=== PATIENT | female | born 1945 | race Caucasian/White ===

== ENCOUNTER 2018-08-25 15:28 | Emergency (ER) | payer MEDICARE ==
[~2018-08-25] VITALS: Ht 160 cm; Wt 95.3 kg
[2018-08-25] MEDS ORDERED: IV NORMAL SALINE 1,000ML 1,000 ML IV ONE (16:00)
[2018-08-25 16:29] LABS: BASO % 1 % (0-3); EOS # 0.1 x10^3/uL (0.0-0.7); EOS % 2 % (0-3); HEMATOCRIT 33.3 % (36.0-47.0); LYMPH # 1.9 x10^3/uL (1.0-4.8); LYMPH % 41 % (24-48); MEAN CORPUSCULAR HEMOGLOBIN 29 pg (25-35); MEAN CORPUSCULAR HGB CONC 33 g/dL (31-37); MEAN CORPUSCULAR VOLUME 87 fL (79-100); MONO # 0.3 x10^3/uL (0.0-1.1); MONO % 6 % (0-9); NEUT # 2.4 x10^3uL (1.8-7.7); NEUT % 51 % (31-73); PLATELET COUNT 173 x10^3/uL (140-400); RED BLOOD COUNT 3.82 x10^6/uL (3.50-5.40); RED CELL DISTRIBUTION WIDTH 15.3 % (11.5-14.5); WHITE BLOOD COUNT 4.7 x10^3/uL (4.0-11.0)
[2018-08-25 16:40] LABS: ALBUMIN/GLOBULIN RATIO 0.6 (1.0-1.7); CALCIUM 9.5 mg/dL (8.5-10.1); GFR 54.2; POTASSIUM 3.9 mmol/L (3.5-5.1); TOTAL BILIRUBIN 0.3 mg/dL (0.2-1.0); TOTAL PROTEIN 7.8 g/dL (6.4-8.2)
--- NOTE | 2018-08-25 16:58 | PHYS DOC ---
Past History Past Medical History: No Pertinent History Past Surgical History: Appendectomy, Cholecystectomy, Hysterectomy Adult General Chief Complaint Chief Complaint: VAGINAL BLEEDING HPI HPI 73-year-old female presents with vaginal bleeding. The patient woke up around 2pm and when she went to the bathroom she discovered that her pad had blood on it. She also had blood in the toilet when she went to the bathroom and blood on the toilet paper when she wiped. It was bright red. Patient denies any pain. She has had no increased urinary frequency or dysuria. She does not believe the blood is coming from her rectum. The patient had a hysterectomy many years ago. She is not sexually active for several years. She denies putting anything in her vagina. She has had no fever or chills. She denies shortness of breath, dizziness, headache. Review of Systems Review of Systems Constitutional: Denies fever or chills [] Eyes: Denies change in visual acuity, redness, or eye pain [] HENT: Denies nasal congestion or sore throat [] Respiratory: Denies cough or shortness of breath [] Cardiovascular: No additional information not addressed in HPI [] GI: Denies abdominal pain, nausea, vomiting, bloody stools or diarrhea [] : Vaginal bleeding[] Musculoskeletal: Denies back pain or joint pain [] Integument: Denies rash or skin lesions [] Neurologic: Denies headache, focal weakness or sensory changes [] Endocrine: Denies polyuria or polydipsia [] All other systems were reviewed and found to be within normal limits, except as documented in this note. Current Medications Current Medications Current Medications Medications (Trade) Dose Ordered Sig/Michel Start Time Stop Time Status Last Admin Dose Admin Sodium Chloride 1,000 ml @ 1,000 mls/hr 1X ONCE 08/25/18 16:00 08/25/18 16:59 08/25/18 16:08 1,000 MLS/HR Allergies Allergies Allergies Coded Allergies Type Severity Reaction Last Updated Verified No Known Drug Allergies 08/25/18 No Physical Exam Physical Exam Constitutional: Well developed, well nourished, no acute distress, non-toxic appearance. [] HENT: Normocephalic, atraumatic, bilateral external ears normal, oropharynx moist, no oral exudates, nose normal. [] Eyes: PERRLA, EOMI, conjunctiva normal, no discharge. [] Neck: Normal range of motion, no tenderness, supple, no stridor. [] Cardiovascular:Heart rate regular rhythm, no murmur [] Lungs & Thorax: Bilateral breath sounds clear to auscultation [] Abdomen: Bowel sounds normal, soft, no tenderness, no masses, no pulsatile masses. [] Skin: Warm, dry, no erythema, no rash. [] Back: No tenderness, no CVA tenderness. [] Extremities: No tenderness, no cyanosis, no clubbing, ROM intact, no edema. [] Neurologic: Alert and oriented X 3, normal motor function, normal sensory function, no focal deficits noted. [] Psychologic: Affect normal, judgement normal, mood normal. : Normal external exam, some small areas of thin skin with vessels just below at the distal labia. Internal exam some whitish discharge, no blood seen. [] Current Patient Data Vital Signs Vital Signs Date Time Temp Pulse Resp B/P (MAP) Pulse Ox O2 Delivery O2 Flow Rate FiO2 08/25/18 16:03 98.0 148 22 94 Room Air Lab Results Laboratory Tests Test 08/25/18 16:09 White Blood Count 4.7 x10^3/uL (4.0-11.0) Red Blood Count 3.82 x10^6/uL (3.50-5.40) Hemoglobin 11.0 g/dL (12.0-15.5) L Hematocrit 33.3 % (36.0-47.0) L Mean Corpuscular Volume 87 fL (79-100) Mean Corpuscular Hemoglobin 29 pg (25-35) Mean Corpuscular Hemoglobin Concent 33 g/dL (31-37) Red Cell Distribution Width 15.3 % (11.5-14.5) H Platelet Count 173 x10^3/uL (140-400) Neutrophils (%) (Auto) 51 % (31-73) Lymphocytes (%) (Auto) 41 % (24-48) Monocytes (%) (Auto) 6 % (0-9) Eosinophils (%) (Auto) 2 % (0-3) Basophils (%) (Auto) 1 % (0-3) Neutrophils # (Auto) 2.4 x10^3uL (1.8-7.7) Lymphocytes # (Auto) 1.9 x10^3/uL (1.0-4.8) Monocytes # (Auto) 0.3 x10^3/uL (0.0-1.1) Eosinophils # (Auto) 0.1 x10^3/uL (0.0-0.7) Basophils # (Auto) 0.0 x10^3/uL (0.0-0.2) Sodium Level 137 mmol/L (136-145) Potassium Level 3.9 mmol/L (3.5-5.1) Chloride Level 101 mmol/L (98-107) Carbon Dioxide Level 28 mmol/L (21-32) Anion Gap 8 (6-14) Blood Urea Nitrogen 21 mg/dL (7-20) H Creatinine 1.0 mg/dL (0.6-1.0) Estimated GFR (Cockcroft-Gault) 54.2 BUN/Creatinine Ratio 21 (6-20) H Glucose Level 304 mg/dL (70-99) H Calcium Level 9.5 mg/dL (8.5-10.1) Total Bilirubin 0.3 mg/dL (0.2-1.0) Aspartate Amino Transferase (AST) 51 U/L (15-37) H Alanine Aminotransferase (ALT) 84 U/L (14-59) H Alkaline Phosphatase 94 U/L (46-116) Total Protein 7.8 g/dL (6.4-8.2) Albumin 3.0 g/dL (3.4-5.0) L Albumin/Globulin Ratio 0.6 (1.0-1.7) L EKG EKG [] Radiology/Procedures Radiology/Procedures [] Course & Med Decision Making Course & Med Decision Making Pertinent Labs and Imaging studies reviewed. (See chart for details) The patient's labs show mild anemia, I have no previous for comparison. Her pelvic exam does not show significant atrophy. There are some superficial vessels with thin overlying skin of the distal vagina and labia. It is possible that these could become irritated and bleed. I do not see any current bleeding. The patient's wet prep is still pending. I will sign her out to Dr. Tolliver for final disposition. [] Dragon Disclaimer Dragon Disclaimer This electronic medical record was generated, in whole or in part, using a voice recognition dictation system. Departure Departure: Referrals: PCP,UNKNOWN (PCP) ANGEL HENDERSON DO Aug 25, 2018 16:57
[2018-08-25 18:37] VITALS: BP 148/84
[2018-08-25 18:43] LABS: BACTERIA,URINE MANY /HPF (0-FEW); BILIRUBIN,URINE NEG (NEG); CLARITY,URINE CLOUDY; COLOR,URINE YELLOW; GLUCOSE,URINE 250 mg/dL (NEG); NITRITE,URINE POS (NEG); SQUAMOUS EPITHELIAL CELL,UR FEW /LPF; UROBILINOGEN,URINE 0.2 mg/dL (0.2 mg/dL); WBC,URINE >40 /HPF (0-4)
[2018-08-25] MEDS ORDERED: CEPH-264 PO (18:55)
[2018-08-25] MEDS ORDERED: cefTRIAXone IM 1 GM VIAL IM ONE (19:01)
[2018-08-25] MEDS ORDERED: IV NORMAL SALINE 50ML 0 ML ONE (19:02)
[2018-08-25] MEDS ORDERED: cefTRIAXone IV Push 1 GM VIAL. IVP ONE (19:15)
== END 2018-08-25 19:34 | disposition home or self-care (01) ==
LOC: ER 15:28
DX: N39.0 Urinary tract infection, site not specified (principal); E11.9 Type 2 diabetes mellitus without complications; D64.9 Anemia, unspecified; Z90.89 Acquired absence of other organs; Z90.49 Acquired absence of other specified parts of digestive tract; Z90.710 Acquired absence of both cervix and uterus
CPT/HCPCS: 36415; 80053; 81001; 85025; 87086; 96374; 99284; J0696; Q0111; 87186; 96361; J7030

== ENCOUNTER 2018-10-20 20:22 | Inpatient (IN) | payer MEDICARE ==
[~2018-10-20] VITALS: Ht 157.5 cm; Wt 104.3 kg
[~2018-10-20 20:22] MED LIST: CEPH-264 PO
[2018-10-20] MEDS ORDERED: IV NORMAL SALINE 1,000ML 1,000 ML IV SCH (20:42)
[2018-10-20] MEDS ORDERED: dilTIAZem VIAL 125 MG in IV DEXTROSE 5% 100 ML IV ONE (20:45)
[2018-10-20] MEDS ORDERED: dilTIAZem 25 MG/5 ML VIAL IVP ONE (20:45)
[2018-10-20] MEDS ORDERED: IV DEXTROSE 5% 100 ML IV ONE (20:50)
--- NOTE | 2018-10-20 20:53 | PHYS DOC ---
Past History Past Medical History: Diabetes, Hypertension Past Surgical History: Cholecystectomy, Hysterectomy, Other Alcohol Use: None Drug Use: None Adult General Chief Complaint Chief Complaint: SHORTNESS OF BREATH HPI HPI Patient is a 73-year-old female who presents to the emergency department for evaluation. The patient's son states that the patient has had a generally declining health over the past several days. She has had a decreased appetite, and not been eating. She has also become increasingly more forgetful. She has been repeating questions, but where she is going, upon transportation to the emergency department. She denies any definite focal pain but is somewhat of a limited historian. The patient's son states that she has had some confusion for some time, but still has been able to live independently. However confusion seems to have worsened. She has not been formally diagnosed dementia in the past , however. There are no alleviating or exacerbating factors to the patient's symptoms otherwise. Review of Systems Review of Systems Constitutional: Denies fever or chills [] Eyes: Denies change in visual acuity, redness, or eye pain [] HENT: Denies nasal congestion or sore throat [] Respiratory: Denies cough or shortness of breath [] Cardiovascular: Denies chest pain, denies palpitations.[] GI: Denies nausea, vomiting, bloody stools or diarrhea [] : Denies dysuria or hematuria [] Musculoskeletal: Denies back pain or joint pain [] Integument: Denies rash or skin lesions [] Neurologic: Denies headache, focal weakness or sensory changes. The patient's son reports increasing confusion.[] Endocrine: Denies polyuria or polydipsia [] All other systems were reviewed and found to be within normal limits, except as documented in this note. Allergies Allergies Allergies Coded Allergies Type Severity Reaction Last Updated Verified No Known Drug Allergies 08/25/18 No Physical Exam Physical Exam PHYSICAL EXAM: CONSTITUTIONAL: Well developed, well nourished HEAD: normocephalic, atraumatic EENT: PERRL, EOMI. Conjunctivae normal color, sclerae non-icteric; dry mucous membranes. NECK: Supple, non-tender; no meningismus. LUNGS: Lungs CTA, breathing even and unlabored. Normal air movement. HEART: Rapid irregularly irregular rhythm, no murmur CHEST: No deformity; non-tender ABDOMEN: The abdomen is soft, mildly distended, diminished bowel sounds are present, there is diffuse tenderness to palpation of the entire abdomen, without focal tenderness, rebound, or guarding, no masses or bruits. EXTREM: Normal ROM; no deformity, no calf tenderness. Normal pulses palpable in all extremities. There is no pedal edema. SKIN: No rash; no diaphoresis NEURO: Alert; normal speech, the patient is oriented to person, and to place, but not to time. She has impaired cognition, with some confabulation, suggestive of underlying dementia; CN's grossly intact; strength grossly intact without focal deficit. BACK: No CVA TTP. Current Patient Data Vital Signs Vital Signs Date Time Temp Pulse Resp B/P (MAP) Pulse Ox O2 Delivery O2 Flow Rate FiO2 10/20/18 20:34 97.8 133 20 94 Room Air Lab Results Laboratory Tests Test 10/20/18 20:40 White Blood Count 5.1 x10^3/uL Red Blood Count 3.79 x10^6/uL Hemoglobin 10.5 g/dL Hematocrit 32.7 % Mean Corpuscular Volume 86 fL Mean Corpuscular Hemoglobin 28 pg Mean Corpuscular Hemoglobin Concent 32 g/dL Red Cell Distribution Width 16.9 % Platelet Count 165 x10^3/uL Neutrophils (%) (Auto) 62 % Lymphocytes (%) (Auto) 31 % Monocytes (%) (Auto) 6 % Eosinophils (%) (Auto) 1 % Basophils (%) (Auto) 1 % Neutrophils # (Auto) 3.1 x10^3uL Lymphocytes # (Auto) 1.5 x10^3/uL Monocytes # (Auto) 0.3 x10^3/uL Eosinophils # (Auto) 0.1 x10^3/uL Basophils # (Auto) 0.0 x10^3/uL Prothrombin Time 11.8 SEC Prothromb Time International Ratio 1.2 Sodium Level 134 mmol/L Potassium Level 3.9 mmol/L Chloride Level 99 mmol/L Carbon Dioxide Level 26 mmol/L Anion Gap 9 Blood Urea Nitrogen 16 mg/dL Creatinine 1.1 mg/dL Estimated GFR (Cockcroft-Gault) 48.6 BUN/Creatinine Ratio 15 Glucose Level 311 mg/dL Lactic Acid Level 2.2 mmol/L Calcium Level 11.4 mg/dL Magnesium Level 1.6 mg/dL Total Bilirubin 0.6 mg/dL Aspartate Amino Transf (AST/SGOT) 42 U/L Alanine Aminotransferase (ALT/SGPT) 39 U/L Alkaline Phosphatase 93 U/L Troponin I Quantitative < 0.017 ng/mL TC-Vsd-M-Type Natriuretic Peptide 2833 pg/mL Total Protein 8.3 g/dL Albumin 3.1 g/dL Albumin/Globulin Ratio 0.6 Current Medications Medications (Trade) Dose Ordered Sig/Michel Route PRN Reason Start Time Stop Time Status Last Admin Dose Admin Diltiazem HCl (Cardizem Iv Push) 10 mg 1X ONCE IVP 10/20/18 20:45 10/20/18 20:49 DC 10/20/18 20:55 Diltiazem HCl 125 mg/Dextrose 125 ml @ 10 mls/hr 1X ONCE IV 10/20/18 20:45 10/21/18 09:14 10/20/18 20:57 Sodium Chloride 1,000 ml @ 1,000 mls/hr Q1H IV 10/20/18 20:42 10/20/18 21:41 DC 10/20/18 20:54 Dextrose 100 ml @ As Directed STK-MED ONCE IV 10/20/18 20:50 10/20/18 20:51 DC Diltiazem HCl (Cardizem) 125 mg STK-MED ONCE IV 10/20/18 20:50 10/20/18 20:51 DC Aspirin (Children'S Aspirin) 162 mg 1X ONCE PO 10/20/18 21:00 10/20/18 21:01 DC 10/20/18 21:31 Insulin Human Regular (HumuLIN R VIAL) 5 unit 1X ONCE IV 10/20/18 21:30 10/20/18 21:33 DC 10/20/18 21:36 Magnesium Sulfate 100 ml @ 100 mls/hr 1X ONCE IV 10/20/18 21:30 10/20/18 22:29 10/20/18 21:49 Magnesium Sulfate 100 ml @ As Directed STK-MED ONCE IV 10/20/18 21:33 10/20/18 21:34 DC EKG EKG Atrial fibrillation at a rate of 159 bpm, normal axis, normal intervals, nonspecific ST/T changes. Radiology/Procedures Radiology/Procedures [ER physician preliminary chest x-ray interpretation: Cardiomegaly without acute abnormality.] PROCEDURE: CT HEAD WO CONTRAST CT Head W/O Contrast: History: Altered mental status, confusion Comparison: none Axial images were obtained without contrast. There is moderate diffuse atrophy. There is no mass effect, extraaxial fluid collections or hydrocephalus. 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 There is no focal loss of caro-white matter distinction to suggest acute ischemia, i.e. stroke. There is diffuse heterogeneity osseous structures with a fine moth eaten appearance. Impression: 1. 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 No acute intracranial findings. 2. Diffuse heterogeneity of the osseous structures could be secondary to multiple myeloma. PROCEDURE: CT ABDOMEN PELVIS WO CONTRAST Abdominal and Pelvis CT, Without Contrast: History: Abdominal pain and tenderness and history of cholecystectomy and appendectomy and hysterectomy Comparison: None. Procedure: Axial images are obtained of the abdomen and pelvis, without IV or oral contrast. CT Abdomen without Contrast: Findings: Evaluation of solid organs is limited without contrast. There is mild free fluid around the spleen and there is free fluid along the paracolic gutter on the left. There is a trace of free fluid around the liver. Evaluation of stomach and bowel is limited without oral contrast. Liver: Normal. Spleen: Normal. Pancreas: Atrophic. Adrenal Glands: Normal. Kidneys: Small cyst on the left. There is no free air. There is no lymphadenopathy. Impression: Please see CT Pelvis without Contrast. End Impression. CT Pelvis without Contrast: Findings: The urinary bladder is collapsed. There is diffuse edema in the soft tissues especially in the anterior abdominal wall. There is no free fluid. There is mild free fluid in the pelvis. There is no lymphadenopathy. There is no pericolonic inflammation identified. Impression: 1. Diffuse soft tissue edema could be anasarca or sepsis. 2. Mild free fluid likely ascites. End impression Course & Med Decision Making Course & Med Decision Making Pertinent Labs and Imaging studies reviewed. (See chart for details) []10:05 PM:The patient's condition remains stable. I spoke with the hospitalist, who accepted the patient to the hospital for further evaluation and treatment. CRITICAL CARE TIME: 45 Minutes, excluding any procedures and care of other patients. Dragon Disclaimer Dragon Disclaimer This electronic medical record was generated, in whole or in part, using a voice recognition dictation system. Departure Departure: Impression: Primary Impression: Atrial fibrillation with RVR Additional Impressions: Congestive heart failure Hyperglycemia Altered mental status Dehydration Disposition: ADMITTED INPATIENT Admitting Physician: Danilo Royal Condition: GUARDED Referrals: PCP,UNKNOWN (PCP) Problem Qualifiers DONOVAN FRANCISCO MD Oct 20, 2018 20:53
[2018-10-20] MEDS ORDERED: ASPIRIN 81 MG TAB.CHEW PO ONE (21:00)
[2018-10-20 21:09] LABS: BASO % 1 % (0-3); EOS # 0.1 x10^3/uL (0.0-0.7); EOS % 1 % (0-3); HEMATOCRIT 32.7 % (36.0-47.0); HEMOGLOBIN 10.5 g/dL (12.0-15.5); LYMPH # 1.5 x10^3/uL (1.0-4.8); LYMPH % 31 % (24-48); MEAN CORPUSCULAR HEMOGLOBIN 28 pg (25-35); MEAN CORPUSCULAR HGB CONC 32 g/dL (31-37); MEAN CORPUSCULAR VOLUME 86 fL (79-100); MONO # 0.3 x10^3/uL (0.0-1.1); MONO % 6 % (0-9); NEUT # 3.1 x10^3uL (1.8-7.7); NEUT % 62 % (31-73); PLATELET COUNT 165 x10^3/uL (140-400); RED BLOOD COUNT 3.79 x10^6/uL (3.50-5.40); RED CELL DISTRIBUTION WIDTH 16.9 % (11.5-14.5); WHITE BLOOD COUNT 5.1 x10^3/uL (4.0-11.0)
[2018-10-20 21:23] LABS: ALBUMIN 3.1 g/dL (3.4-5.0); ALBUMIN/GLOBULIN RATIO 0.6 (1.0-1.7); CALCIUM 11.4 mg/dL (8.5-10.1); CREATININE 1.1 mg/dL (0.6-1.0); GFR 48.6; MAGNESIUM 1.6 mg/dL (1.8-2.4); POTASSIUM 3.9 mmol/L (3.5-5.1); TOTAL BILIRUBIN 0.6 mg/dL (0.2-1.0); TOTAL PROTEIN 8.3 g/dL (6.4-8.2)
[2018-10-20] MEDS ORDERED: MAGNESIUM SULFATE 1GM 100 ML IV ONE ×2 (21:30→21:33)
[2018-10-20] MEDS ORDERED: INSULIN REGULAR 100 UNIT/ML 3ML VIAL. IV ONE (21:30)
--- NOTE | 2018-10-20 21:46 | RAD ---
CT Head W/O Contrast: History: Altered mental status, confusion Comparison: none Axial images were obtained without contrast. There is moderate diffuse atrophy. There is no mass effect, extraaxial fluid collections or hydrocephalus. 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 There is no focal loss of caro-white matter distinction to suggest acute ischemia, i.e. stroke. There is diffuse heterogeneity osseous structures with a fine moth eaten appearance. Impression: 1. 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 No acute intracranial findings. 2. Diffuse heterogeneity of the osseous structures could be secondary to multiple myeloma. PQRS Compliance Statement: One or more of the following individualized dose reduction techniques were utilized for this examination: 1. Automated exposure control 2. Adjustment of the mA and/or kV according to patient size 3. Use of iterative reconstruction technique Electronically signed by: Geronimo Echeverria III, MD (10/20/2018 9:43 PM) [facility]
--- NOTE | 2018-10-20 22:02 | RAD ---
Abdominal and Pelvis CT, Without Contrast: History: Abdominal pain and tenderness and history of cholecystectomy and appendectomy and hysterectomy Comparison: None. Procedure: Axial images are obtained of the abdomen and pelvis, without IV or oral contrast. CT Abdomen without Contrast: Findings: Evaluation of solid organs is limited without contrast. There is mild free fluid around the spleen and there is free fluid along the paracolic gutter on the left. There is a trace of free fluid around the liver. Evaluation of stomach and bowel is limited without oral contrast. Liver: Normal. Spleen: Normal. Pancreas: Atrophic. Adrenal Glands: Normal. Kidneys: Small cyst on the left. There is no free air. There is no lymphadenopathy. Impression: Please see CT Pelvis without Contrast. End Impression. CT Pelvis without Contrast: Findings: The urinary bladder is collapsed. There is diffuse edema in the soft tissues especially in the anterior abdominal wall. There is no free fluid. There is mild free fluid in the pelvis. There is no lymphadenopathy. There is no pericolonic inflammation identified. Impression: 1. Diffuse soft tissue edema could be anasarca or sepsis. 2. Mild free fluid likely ascites. End impression PQRS Compliance Statement: One or more of the following individualized dose reduction techniques were utilized for this examination: 1. Automated exposure control 2. Adjustment of the mA and/or kV according to patient size 3. Use of iterative reconstruction technique Electronically signed by: Geronimo Echeverria III, MD (10/20/2018 9:58 PM) [facility]
[2018-10-20] MEDS ORDERED: ACETAMINOPHEN 325 MG TABLET PO ONE (22:30)
[2018-10-20 22:50] LABS: BILIRUBIN,URINE NEG (NEG); CLARITY,URINE HAZY; COLOR,URINE YELLOW; GLUCOSE,URINE 100 mg/dL (NEG)
[2018-10-20 22:51] LABS: AMORPHOUS SEDIMENT,UR PRESENT /HPF; BACTERIA,URINE 0 /HPF (0-FEW); HYALINE CASTS, URINE MANY /HPF; NITRITE,URINE NEG (NEG); SQUAMOUS EPITHELIAL CELL,UR FEW /LPF; UROBILINOGEN,URINE 0.2 mg/dL (0.2 mg/dL)
[2018-10-20 23:30] VITALS: BP 118/56
[2018-10-21] VITALS (24 sets, daily range): BP systolic 108–165; BP diastolic 56–103
--- NOTE | 2018-10-21 01:41 | EKG ---
[address] [address] Test Date: 2018-10-20 Test Time: 20:36:48 Pat Name: SAV MORAN Department: Room: [facility]04 1 Gender: F Patent Paralegal: : 1945 Requested By: DONOVAN FRANCISCO Order Number: [id number] Reading MD: Nicanor Shaw Measurements Intervals [place] Rate: 144 P: NM: QRS: 43 QRSD: 76 T: 39 QT: 296 QTc: 463 Interpretive Statements ATRIAL FIBRILLATION WITH RVR LOW LIMB LEAD VOLTAGE ABNORMAL ECG Electronically Signed On 10-24-2018 8:43:29 [employer] by Nicanor Shaw
[2018-10-21] MEDS ORDERED: HYDR12.58 PO (01:57)
[2018-10-21] MEDS ORDERED: LISI-334 PO (01:57)
[2018-10-21] MEDS ORDERED: INSU100I13 SUBCUT (01:57)
[2018-10-21] MEDS ORDERED: METF500T16 PO (01:57)
--- NOTE | 2018-10-21 02:22 | RAD ---
AP portable chest radiograph 10/20/2018 Clinical History: Shortness of breath and chest discomfort. An AP erect portable digital radiograph of the chest was obtained. No previous studies are available for comparison. The cardiac silhouette is mildly enlarged. Atherosclerotic calcification thoracic aorta is seen. The thoracic aorta is mildly tortuous. No acute pulmonary infiltrate is seen. No pleural effusion or pneumothorax is noted. Degenerative changes are seen involving the thoracic spine and both shoulders. IMPRESSION: No acute abnormality is seen. Electronically signed by: Candido Wu MD (10/21/2018 2:19 AM) [facility] [id number]
[2018-10-21] MEDS ORDERED: dilTIAZem VIAL 125 MG in IV DEXTROSE 5% 100 ML IV PRN (05:30)
[2018-10-21 06:36] LABS: HEMATOCRIT 31.2 % (36.0-47.0); HEMOGLOBIN 9.9 g/dL (12.0-15.5); RED BLOOD COUNT 3.57 x10^6/uL (3.50-5.40); RED CELL DISTRIBUTION WIDTH 16.7 % (11.5-14.5)
[2018-10-21 06:51] LABS: CALCIUM 11.3 mg/dL (8.5-10.1); GFR 54.2; MAGNESIUM 1.9 mg/dL (1.8-2.4); POTASSIUM 3.7 mmol/L (3.5-5.1)
--- NOTE | 2018-10-21 09:06 | PDOC2 ---
CONSULT Date of Admission DATE: 10/21/18 TIME: 09:03 Reason for Consult: afib, chf Problem List Problems Medical Problems: (1) Altered mental status Status: Acute (2) Atrial fibrillation with RVR Status: Acute (3) Congestive heart failure Status: Acute (4) Dehydration Status: Acute (5) Hyperglycemia Status: Acute History of Present Illness Ms Carlin is a 73 year old female who presented to the ED accompanied by her son for progressive weakness, frequent falls and shortness of breath. She was found to be in atrial fibrillation with RVR so consult was called. Currently she is on a cardizem drip, remains in atrial fibrillation but with controlled ventricular response. She is a poor historian but her son is at bedside and provides history. She initially reports that she came to the ED after a fall out of bed but her son reports that this actually obscured a couple weeks ago. He reports that she has had progressive weakness over several years and several falls in the last year. He reports she has had memory issues for some time but progressively worse in the last couple weeks. Yesterday he noticed that her speech was "not slurred but funny" and she complained of not feeling well so he brought her to the ED. He says she has been short of breath with any activity over the last couple weeks. She denies any chest pain and he denies any prior complaints of chest pain. He reports she has a gait that lists to the left and recently she has been leaning on her walker much more than normal. She denies palpitations but states today she can feel the irregular beats. She currently denies any dyspnea, chest pain. She reports that she sometimes has dizziness and her son states she sometimes appears to be dizzy on standing but has never complained of it. She does continue to live in her own apartment. Cardiovascular: HTN Musculoskeletal: Weakness Renal/: UTI Endocrine: Diabetes Past Surgical History: Appendectomy, Cholecystectomy, Cataract Removal, Hysterectomy, Other (shoulder surgery) Family History: Cancer, Diabetes, Stroke Social History no smoking, no significant ETOH, no illicit drugs Current Medications Current Medications Diltiazem HCl (Cardizem Iv Push) 10 mg 1X ONCE IVP Last administered on at 20:55; Start 10/20/18 at 20:45; Stop 10/20/18 at 20:49; Status DC Diltiazem HCl 125 mg/Dextrose 125 ml @ 10 mls/hr 1X ONCE IV Last administered on 10/20/18at 20:57; Start 10/20/18 at 20:45; Stop 10/21/18 at 09 :14 Sodium Chloride 1,000 ml @ 1,000 mls/hr Q1H IV Last administered on at 20:54; Start 10/20/18 at 20:42; Stop 10/20/18 at 21:41; Status DC Dextrose 100 ml @ As Directed STK-MED ONCE IV ; Start 10/20/18 at 20:50; Stop 10/20/18 at 20:51; Status DC Diltiazem HCl (Cardizem) 125 mg STK-MED ONCE IV ; Start 10/20/18 at 20:50; Stop 10/20/18 at 20:51; Status DC Aspirin (Children'S Aspirin) 162 mg 1X ONCE PO Last administered on at 21:31; Start 10/20/18 at 21:00; Stop 10/20/18 at 21:01; Status DC Insulin Human Regular (HumuLIN R VIAL) 5 unit 1X ONCE IV Last administered on 10/20/18at 21:36; Start 10/20/18 at 21:30; Stop 10/20/18 at 21:33; Status DC Magnesium Sulfate 100 ml @ 100 mls/hr 1X ONCE IV Last administered on at 21:49; Start 10/20/18 at 21:30; Stop 10/20/18 at 22:29; Status DC Magnesium Sulfate 100 ml @ As Directed STK-MED ONCE IV ; Start 10/20/18 at 21: 33; Stop 10/20/18 at 21:34; Status DC Acetaminophen (Tylenol) 650 mg 1X ONCE PO Last administered on 10/20/18at 22: 23; Start 10/20/18 at 22:30; Stop 10/20/18 at 22:31; Status DC Diltiazem HCl (Cardizem) 125 mg STK-MED ONCE IV ; Start 10/21/18 at 05:01; Stop 10/21/18 at 05:02; Status DC Diltiazem HCl 125 mg/Dextrose 125 ml @ 5 mls/hr CONT PRN IV SEE I/O RECORD Last administered on 10/21/18at 05:58; Start 10/21/18 at 05:30 Active Scripts Active Keflex (Cephalexin) 500 Mg Capsule 500 Mg PO TID Reported Lantus Solostar (Insulin Glargine,Hum.rec.anlog) 100 Unit/1 Ml Insuln.pen 30 Units SUBCUT QHS Hydrochlorothiazide Tablet (Hydrochlorothiazide) 12.5 Mg Tablet 12.5 Mg PO DAILY Lisinopril 20 Mg Tablet 20 Mg PO DAILY Metformin Hcl 500 Mg Tablet 500 Mg PO BID Allergies: Coded Allergies: No Known Drug Allergies (Unverified , 08/25/18) General: YES: Fatigue, Appetite (poor intake over 2 weeks) PSYCHOLOGICAL ROS: YES: Disorientation, Memory difficulties ENDOCRINE: YES: Palpitations Respiratory: YES: SOB with excertion Cardiovascular: yes: Palpitations, Edema, Lt Headedness Musculoskeletal: YES: Gait Disturbance, Muscular Weakness Neurological: YES: Dizziness, Gait Disturbance, Impaired Coord/balance, Memory Loss, Speech Problems, Weakness General: Alert, Oriented X3, Cooperative, No acute distress, Other (poor short term recall) HEENT: Atraumatic, EOMI, Mucous membr. moist/pink Lungs: Clear to auscultation, Normal air movement Heart: Normal S1, Normal S2, Other (irregularly irregular rate and rhythm, no gallops, clicks or rubs. No significnt murmurs.) Abdomen: Normal bowel sounds, Soft, No tenderness Extremities: No cyanosis, Normal pulses, Other (trace edema) Neuro: Normal speech, Strength at 5/5 X4 ext Psych/Mental Status: Mental status NL, Mood NL VITALS Vital Signs Date Time Temp Pulse Resp B/P (MAP) Pulse Ox O2 Delivery O2 Flow Rate FiO2 10/21/18 08:00 97.4 74 28 140/87 (104) 97 Room Air Labs Laboratory Tests Test 10/20/18 20:40 10/20/18 22:15 10/21/18 00:40 10/21/18 05:39 White Blood Count 5.1 x10^3/uL (4.0-11.0) 5.0 x10^3/uL (4.0-11.0) Red Blood Count 3.79 x10^6/uL (3.50-5.40) 3.57 x10^6/uL (3.50-5.40) Hemoglobin 10.5 g/dL (12.0-15.5) 9.9 g/dL (12.0-15.5) Hematocrit 32.7 % (36.0-47.0) 31.2 % (36.0-47.0) Mean Corpuscular Volume 86 fL (79-100) 87 fL (79-100) Mean Corpuscular Hemoglobin 28 pg (25-35) 28 pg (25-35) Mean Corpuscular Hemoglobin Concent 32 g/dL (31-37) 32 g/dL (31-37) Red Cell Distribution Width 16.9 % (11.5-14.5) 16.7 % (11.5-14.5) Platelet Count 165 x10^3/uL (140-400) 153 x10^3/uL (140-400) Neutrophils (%) (Auto) 62 % (31-73) Lymphocytes (%) (Auto) 31 % (24-48) Monocytes (%) (Auto) 6 % (0-9) Eosinophils (%) (Auto) 1 % (0-3) Basophils (%) (Auto) 1 % (0-3) Neutrophils # (Auto) 3.1 x10^3uL (1.8-7.7) Lymphocytes # (Auto) 1.5 x10^3/uL (1.0-4.8) Monocytes # (Auto) 0.3 x10^3/uL (0.0-1.1) Eosinophils # (Auto) 0.1 x10^3/uL (0.0-0.7) Basophils # (Auto) 0.0 x10^3/uL (0.0-0.2) Prothrombin Time 11.8 SEC (9.4-11.4) Prothromb Time International Ratio 1.2 (0.9-1.1) Sodium Level 134 mmol/L (136-145) 134 mmol/L (136-145) Potassium Level 3.9 mmol/L (3.5-5.1) 3.7 mmol/L (3.5-5.1) Chloride Level 99 mmol/L (98-107) 101 mmol/L (98-107) Carbon Dioxide Level 26 mmol/L (21-32) 25 mmol/L (21-32) Anion Gap 9 (6-14) 8 (6-14) Blood Urea Nitrogen 16 mg/dL (7-20) 15 mg/dL (7-20) Creatinine 1.1 mg/dL (0.6-1.0) 1.0 mg/dL (0.6-1.0) Estimated GFR (Cockcroft-Gault) 48.6 54.2 BUN/Creatinine Ratio 15 (6-20) Glucose Level 311 mg/dL (70-99) 246 mg/dL (70-99) Lactic Acid Level 2.2 mmol/L (0.4-2.0) 2.5 mmol/L (0.4-2.0) Calcium Level 11.4 mg/dL (8.5-10.1) 11.3 mg/dL (8.5-10.1) Magnesium Level 1.6 mg/dL (1.8-2.4) 1.9 mg/dL (1.8-2.4) Total Bilirubin 0.6 mg/dL (0.2-1.0) Aspartate Amino Transf (AST/SGOT) 42 U/L (15-37) Alanine Aminotransferase (ALT/SGPT) 39 U/L (14-59) Alkaline Phosphatase 93 U/L (46-116) Troponin I Quantitative < 0.017 ng/mL (0-0.055) LI-Ubo-U-Type Natriuretic Peptide 2833 pg/mL (0-124) Total Protein 8.3 g/dL (6.4-8.2) Albumin 3.1 g/dL (3.4-5.0) Albumin/Globulin Ratio 0.6 (1.0-1.7) Urine Collection Type U cath Urine Color Yellow Urine Clarity Hazy Urine pH 5.5 Urine Specific Chappells >=1.030 Urine Protein >100 mg/dl (NEG-TRACE) Urine Glucose (UA) 100 mg/dL (NEG) Urine Ketones (Stick) Neg mg/dL (NEG) Urine Blood Small (NEG) Urine Nitrite Neg (NEG) Urine Bilirubin Neg (NEG) Urine Urobilinogen Dipstick 0.2 mg/dL (0.2 mg/dL) Urine Leukocyte Esterase Neg (NEG) Urine RBC 3-5 /HPF (0-2) Urine WBC 1-4 /HPF (0-4) Urine Squamous Epithelial Cells Few /LPF Urine Amorphous Sediment Present /HPF Urine Bacteria 0 /HPF (0-FEW) Urine Hyaline Casts Many /HPF Urine Mucus Marked /LPF Test 10/21/18 08:03 Glucose (Fingerstick) 252 mg/dL (70-99) Images CXR - no acute abn EKG atrial fibrillation with rapid ventricular response, no acute ischemic changes Assessment/Plan 1. atrial fibrillation with RVR - now rate controlled on cardizem drip. change to oral. [id number] =~5 indicating need for OAC. Frequent falls recently and poor compliance with meds so will go with ASA only at this time. Risks/benefits/alternatives discussed with patient and son. 2. elevated BNP - clinically no overt heart failure and no pulmonary congestion on CXR 3. hypertension - currently well controlled 4. progressive weakness - consider neuro consult 5. diabetes - uncontrolled, per PCP 6. lactic acidosis - per pcp 7. hypomagnesemia - replaced, now WNL 8. protein malnutrition - per PCP GENESIS ROSARIO APRN Oct 21, 2018 09:06
[2018-10-21] MEDS: ASPIRIN ENTERIC COATED 81 MG TABLET.DR. PO SCH (10:06)
[2018-10-21] MEDS ORDERED: VIT1CAPS12 PO (10:17)
[2018-10-21] MEDS ORDERED: MULT1TAB52 PO (10:18)
[2018-10-21] MEDS ORDERED: ASCO500T PO (10:19)
[2018-10-21 14:00] LABS: THYROID STIM HORMONE (TSH) 1.754 uIU/mL (0.358-3.740)
[2018-10-21] MEDS ORDERED: DEXTROSE 50% 25 GM / 50ML DISP.SYRIN. IV PRN (14:15)
--- NOTE | 2018-10-21 14:24 | HP ---
ADMIT DATE: 10/21/2018 HISTORY OF PRESENT ILLNESS: The patient is a 73-year-old female patient, who was brought to the Emergency Room for evaluation. The patient's son states that the patient has had generally declining health over the past several days, had decreased appetite and has not been eating, has also become increasingly more forgetful. She has also more shortness of breath, weak. The patient said that she has more confusion, but has been able to live independently. Her son and [id number] takes care of her and help her. She has not been formally diagnosed with dementia in the past and she was evaluated in the Emergency Room, was found to be in atrial fibrillation with rapid ventricular response. She had lab work and imaging studies. Her lab work was mostly unremarkable except the fact that she has slightly elevated lactic acid, likely because of the metformin. She was treated with bolus of Cardizem and was started on Cardizem drip and admitted to Intensive Care Unit for close monitoring. Her first set of cardiac enzyme was normal at less than 0.017 and the Cardiology team was consulted. PAST MEDICAL HISTORY: Significant for type 2 diabetes mellitus, hypertension, hyperlipidemia, gout. PAST SURGICAL HISTORY: Significant for bilateral cataract extraction, tonsillectomy, appendectomy, cholecystectomy, total abdominal hysterectomy, bilateral salpingo-oophorectomy, and left shoulder surgery. ALLERGIES: She has no known drug allergies. MEDICATIONS: She is currently on the following medications: She was on cephalexin 500 mg 3 times a day, lisinopril 20 mg once a day, hydrochlorothiazide 12.5 mg once a day, metformin 500 mg p.o. b.i.d. She is on Lantus insulin 30 units at bedtime, ascorbic acid 500 mg once a day, multivitamin 1 tablet once a day and multivitamin in the form PreserVision added soft gel 1 tablet once a day. FAMILY HISTORY: She had 3 brothers and 1 sister , and 6 brothers and 1 sister still alive. Her father at age of 82 and mother in her 60s because of complication of diabetes and overweight. SOCIAL HISTORY: She is , has 1 son and 1 daughter. She never smoked, does not drink alcohol. She used to work with her in their store. REVIEW OF SYSTEMS: The patient denied any blurring of vision. She has bilateral cataract extraction, but denied any glaucoma or macular degeneration. Denied any earache, tinnitus or sensorineural deafness. Denied any nosebleeds, stuffy nose or postnasal drip. Denied any sore throat, sore tongue, toothache, hoarseness of voice or difficulty swallowing. Denied any nausea, vomiting, diarrhea or constipation. Denied any hematemesis, melena or hematochezia. Denied any dysuria, frequency or hematuria. Denied any chest pain. Did complain of shortness of breath. Denied any orthopnea, paroxysmal nocturnal dyspnea. Did complain of generalized weakness. PHYSICAL EXAMINATION: GENERAL: On arrival to the Emergency Room; she looked well, was pale, no jaundice, cyanosis, or thyromegaly. No jugular venous distension. No limb edema. VITAL SIGNS: Her heart rate was 150, blood pressure was 131/86, temperature was 97.8, respiratory rate 20, and oxygen saturation was 94% on room air. HEAD, EYES, EARS, NOSE AND THROAT: Showed normocephalic, atraumatic. NECK: Supple. HEART: Showed normal first and second heart sounds with no gallop, rub or murmur. CHEST: Clear to auscultation. No crepitation or rhonchi. ABDOMEN: Distended, soft, nontender. No guarding or rigidity. No organomegaly. All hernial orifice intact. Bowel sounds normal. NEUROLOGIC: She is awake, alert, responding appropriately. All cranial nerves intact. EXTREMITIES: She moves extremities without difficulty. She requires a walker and according to her son has been falling multiple times. LABORATORY DATA: Showed a serum sodium 134, potassium 3.9, chloride 99, bicarbonate 26, anion gap of 9, BUN 16, creatinine 1.1, estimated GFR was 48 mL per minute. Her glucose was 311, calcium was high at 11.4, magnesium was 1.6. Total bilirubin, AST, ALT, alkaline phosphatase were normal. Beta natriuretic peptide was 2833. Her total protein was 8.3, albumin was 3.1. Her lactic acid was 2.2 millimoles per liter. Her first set of cardiac enzymes showed troponin to be less than 0.017. Her prothrombin time was 11.8, INR of 1.2. Urinalysis showed the urine was yellow, hazy with a pH of 5.5, specific gravity more than 1.030. There was large amount of protein, large amount of glucose, negative for ketones, small amount of blood, negative for nitrite and leukocyte esterase with 3-5 rbc's, 1-4 wbc's and no bacteria. Her CT scan of the head showed that there is moderate diffuse atrophy. There is no mass effect, extraaxial fluid collection or hydrocephalus. 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 There is no focal loss of mccray white matter differentiation to suggest acute ischemia. There is diffuse heterogenicity osseous structures with fine marked in appearance impression. Old small infarct in the left, no acute intracranial finding, diffuse heterogeneity of the osseous structures could be secondary to multiple myeloma. Her chest x-ray showed the cardiac silhouette is mildly enlarged. Atherosclerotic calcification of thoracic aorta is seen. The thoracic aorta is mildly tortuous, no acute pulmonary infiltrate is seen. No pleural effusion or pneumothorax is noted. Degenerative changes are seen involving the thoracic spine and both shoulders. She did have a CT scan of the abdomen and pelvis without contrast, which showed that there is mild free fluid around the spleen and there is free fluid along the paracolic gutter on the left side. There was a trace of free fluid around the liver. Evaluation of stomach and bowel is limited without oral contrast. The liver was normal. Spleen is normal. Pancreas was atrophic, adrenal glands are normal. Kidneys small cyst on the left. There is no free air. There is no lymphadenopathy. The pelvis showed diffuse soft tissue edema with the anasarca, was ordered sepsis, mild free fluid, likely ascites. ASSESSMENT AND PLAN: The patient was admitted with: 1. New onset of atrial fibrillation with rapid ventricular response. 2. Generalized weakness. 3. Mild lactic acidosis. 4. Congestive heart failure. 5. Hyperglycemia. 6. Dehydration. We will continue with the Cardizem drip. We will consult the cardiology team, given her age and multiple falls she is not a candidate for any anticoagulation for the time being. TIFFANY PINEDA MD DR: YANETH/kobi JOB#: [id number] / [id number]
[2018-10-21] MEDS: INSULIN LISPRO 300 UNITS/3 ML INSULN.PEN. SQ SCH ×2 (17:12→21:08)
--- NOTE | 2018-10-21 22:03 | PN ---
DATE: 10/21/2018 SUBJECTIVE: The patient is resting, slightly propped up in bed, in no apparent distress. She says that she has continued to be weak, but much better than yesterday. PHYSICAL EXAMINATION: GENERAL: On examining her, she was resting, slightly propped up in bed, in no apparent respiratory distress, pale, but no jaundice, cyanosis, or thyromegaly. No jugular venous distension. No lower limb edema. VITAL SIGNS: Her heart rate was 84, blood pressure was 147/76, temperature was 97.7, respiratory rate was 28 and oxygen saturation was 96%. HEAD, EYES, EARS, NOSE AND THROAT: Showed normocephalic, atraumatic. NECK: Supple. HEART: Showed normal first and second heart sounds with no gallop, rub or murmur. CHEST: Clear to auscultation. No crepitation or rhonchi. ABDOMEN: Distended, soft, nontender. No guarding or rigidity. No organomegaly. All hernial orifices intact. Bowel sounds normal. NEUROLOGIC: She was awake, alert, responding appropriately, although somewhat hard of hearing. All her cranial nerves intact. EXTREMITIES: She moves extremities without difficulty, though she is mostly bedbound. She apparently was able to walk with a walker. LABORATORY DATA: Today showed her white cell count to be 5000, hemoglobin 10, hematocrit 31, MCV 87, and platelet count of 153,000. Her serum sodium was 134, potassium 3.7, chloride 101, bicarbonate 25, anion gap of 8, BUN 15, creatinine 1, estimated GFR was 54 mL per minute. His glucose was 146, calcium was 11.3, magnesium was 1.9. My plan is to start her on low dose sliding scale insulin before meal and with finding of hypercalcemia and hyperproteinemia, and not eaten, she probably has multiple myeloma. I will discuss the finding with her family. Her lactic acidosis is likely because of metformin and we will hold that for now. The patient's Cardizem drip was discontinued and she is now on oral Cardizem, although she is a candidate for anticoagulation, her history of recurrent falls makes her inappropriate candidate for anticoagulation. She is started on aspirin, I think her altered mental status and weakness is likely due to hypercalcemia and might have to consider treating her with pamidronate. TIFFANY PINEDA MD DR: Scott JOB#: [id number] / [id number]
[2018-10-21] MEDS: ACETAMINOPHEN 325 MG TABLET PO PRN (22:07)
[2018-10-22] VITALS (15 sets, daily range): BP systolic 104–145; BP diastolic 62–86
[2018-10-22] MEDS: ASPIRIN ENTERIC COATED 81 MG TABLET.DR. PO SCH (08:36)
[2018-10-22] MEDS: INSULIN LISPRO 300 UNITS/3 ML INSULN.PEN. SQ SCH ×3 (08:40→17:14)
[2018-10-22] MEDS ORDERED: DEXTROSE 50% 25 GM / 50ML DISP.SYRIN. IV PRN (16:15)
--- NOTE | 2018-10-22 17:34 | PN ---
DATE: 10/22/2018 SUBJECTIVE: The patient is sitting comfortably in her chair, in no apparent distress. She is definitely more awake, alert, apparently managed to walk with a physical therapist with a walker for a short distance. Denied any complaint. Nursing staff did not voice any concern except that her blood sugar is still suboptimally controlled. PHYSICAL EXAMINATION: GENERAL: When I examined her, she was pale, but no jaundice, cyanosis, or thyromegaly. No jugular venous distention. No limb edema. VITAL SIGNS: Her heart rate was 68, blood pressure was 126/63, temperature was 97, respiratory rate was 20, and oxygen saturation was 94%. HEAD, EYES, EARS, NOSE AND THROAT: Normocephalic, atraumatic. NECK: Supple. HEART: Showed normal first and second sounds. No gallop, rub or murmur. CHEST: Clear to auscultation. No crepitation or rhonchi. ABDOMEN: Distended, soft, nontender. NEUROLOGIC: She was definitely more awake, alert, responding appropriately. All cranial nerves intact. She moves extremities without difficulty. She ambulates with a walker. Her intake over the last 24 hours was 1345, output was 500. LABORATORY DATA: This morning showed serum sodium 134, potassium 3.7, chloride 101, bicarbonate 25, anion gap of 8, BUN 15, creatinine 1, estimated GFR was 54 mL per minute. Her glucose was ____, calcium was 11.3, magnesium was 1.9. Her TSH was 1.745. Her white cell count was 5000, hemoglobin 10, hematocrit 31, MCV 87 and platelet count of 153,000. ASSESSMENT: 1. New onset atrial fibrillation, now rate controlled. The patient is not a candidate for any anticoagulation given her recurrent falls. 2. Hypercalcemia with abnormal finding of the CT scan of the skull consistent with multiple myeloma. I sent blood for serum protein electrophoresis, results of which are still pending. 3. Lactic acidosis, most likely type B due to metformin. Other medical problems include hypertension, hyperlipidemia and gout. PLAN: To continue with current plan of management. The patient will await the result of serum protein electrophoresis. I will repeat her lab works again and if the calcium continues to be high, we might consider pamidronate. She will be transferred to swing bed eventually for inpatient rehabilitation. TIFFANY PINEDA MD DR: Scott JOB#: [id number] / [id number]
[2018-10-22] MEDS: ACETAMINOPHEN 325 MG TABLET PO PRN (19:54)
[2018-10-23] MEDS: ACETAMINOPHEN 325 MG TABLET PO PRN (03:06)
[2018-10-23 03:07] LABS: CALCIUM PTH 10.7 mg/dL (8.7-10.3); CREATININE PTH 0.78 mg/dL (0.57-1.00); PTH INTACT 13 pg/mL (15-65)
[2018-10-23 05:00] VITALS: BP 118/77
[2018-10-23 06:44] LABS: ALBUMIN 2.6 g/dL (3.4-5.0); ALBUMIN/GLOBULIN RATIO 0.6 (1.0-1.7); CALCIUM 10.4 mg/dL (8.5-10.1); CREATININE 0.9 mg/dL (0.6-1.0); GFR 61.2; POTASSIUM 3.9 mmol/L (3.5-5.1); TOTAL BILIRUBIN 0.6 mg/dL (0.2-1.0); TOTAL PROTEIN 7.2 g/dL (6.4-8.2)
[2018-10-23] MEDS: ASPIRIN ENTERIC COATED 81 MG TABLET.DR. PO SCH (08:25)
[2018-10-23] MEDS: INSULIN LISPRO 300 UNITS/3 ML INSULN.PEN. SQ SCH ×3 (08:27→17:29)
--- NOTE | 2018-10-23 08:34 | CARD ---
MR#: [id number] Date of Study: 10/21/2018 Ordering Physician: GENESIS ROSARIO, Referring Physician: TIFFANY PINEDA, Tech: Mckayla Ramos APPROVED REPORT EXAM: Two-dimensional and M-mode echocardiogram with Doppler and color Doppler. Other Information Quality : AverageHR: 84bpm Technically limited study due to body habitus. INDICATION Atrial Fibrillation RISK FACTORS Hypertension Hyperlipidemia Diabetes 2D DIMENSIONS RVDd3.6 (2.9-3.5cm)Left Atrium(2D)4.8 (1.6-4.0cm) IVSd0.9 (0.7-1.1cm)Aortic Root(2D)2.6 (2.0-3.7cm) LVDd4.7 (3.9-5.9cm)LVOT Diameter2.0 (1.8-2.4cm) PWd1.1 (0.7-1.1cm)LVDs3.9 (2.5-4.0cm) FS (%) 17.0 %SV36.8 ml LVEF(%)35.6 (>50%) Aortic Valve AoV Peak Mj.122.1cm/sAoV VTI23.1cm AO Peak GR.6.0mmHgLVOT Peak Mj.95.8cm/s LVOT VTI 17.51cmAO Mean GR.4mmHg PANKAJ (VMAX)2.44bb3WCA (VTI)2.48cm2 Pulmonary Valve PV Peak Jfefxvqg06.3cm/sPV Peak Grad.3mmHg Tricuspid Valve TR P. [id number]/sRAP [id number] TR Peak Gr.32mmHg Pulmonary Vein S1 Ueoemopv59.0cm/sD2 Bkrpmzhv74.8cm/s LEFT VENTRICLE The left ventricle is normal size. There is normal left ventricular wall thickness. The systolic func tion is mildly impaired. The Ejection Fraction is 40-45%. Difficult to estimate due to afib. Mild rui bal hypokinesis. Septal motion suggestive of conduction defect. Tissue Doppler imaging reveals modera te left ventricular diastolic dysfunction. RIGHT VENTRICLE The right ventricle is mildly dilated. There is normal right ventricular wall thickness. The right ve ntricular systolic function is normal. ATRIA The left atrium is moderately dilated. The right atrium is moderately dilated. The interatrial septum is intact with no evidence for an atrial septal defect or patent foramen ovale as noted on 2-D or Do ppler imaging. AORTIC VALVE The aortic valve is normal in structure and function. Not well visualized. Doppler and Color Flow rev ealed trace aortic regurgitation. There is no significant aortic valvular stenosis. MITRAL VALVE The mitral valve is normal in structure and function. There is no mitral valve stenosis. Doppler and Color-flow revealed trace mitral regurgitation. TRICUSPID VALVE The tricuspid valve is not well visualized. Doppler and Color Flow revealed mild tricuspid regurgitat ion with an estimated PAP of 47 mmHg. There is no tricuspid valve stenosis. PULMONIC VALVE The pulmonic valve is not well visualized. Doppler and Color Flow revealed trace pulmonic valvular re gurgitation. GREAT VESSELS The aortic root is normal in size. The IVC is dilated and collapses <50%. PERICARDIAL EFFUSION There is no evidence of significant pericardial effusion. Critical Notification Critical Value: No <Conclusion> The systolic function is mildly impaired. The Ejection Fraction is 40-45%. Difficult to estimate due to afib. Tissue Doppler imaging reveals moderate left ventricular diastolic dysfunction. Mild global hypokinesis. Septal motion suggestive of conduction defect. Doppler and Color Flow revealed mild tricuspid regurgitation with an estimated PAP of 47 mmHg. Signed by : Tirso Cleary, Electronically Approved : 10/23/2018 08:33:18
[2018-10-23 11:11] VITALS: BP 126/70
[2018-10-23] MEDS ORDERED: NORMAL SALINE IV ONE (13:00)
[2018-10-23] MEDS ORDERED: PAMIDRONATE IV ONE (13:00)
--- NOTE | 2018-10-23 14:51 | PN ---
DATE: 10/23/2018 SUBJECTIVE: The patient is sitting comfortably in her chair, in no apparent distress. She is definitely more awake, alert. Denied any complaint. The nursing staff did not voice any concern. OBJECTIVE: GENERAL: When I examined her, she looked pale, but no jaundice, cyanosis, or thyromegaly. No jugular venous distension. No lower limb edema. VITAL SIGNS: Her heart rate was 99, blood pressure 126/70, temperature was 97.5, respiratory rate was 22 and oxygen saturation was 99% on room air. The rest of clinical examination is stable and has not really changed. Her intake was 1345 hours, output was 500. LABORATORY DATA: As of this morning, her serum sodium was 138, potassium 3.9, chloride 103, bicarbonate 27, anion gap of 8, BUN 14, creatinine 0.9, estimated GFR was 61 mL per minute. Her glucose was 233, calcium 10.4. Total bilirubin, AST, ALT, alkaline phosphatase were normal. Total protein was 7.2, albumin 2.6. Her hemoglobin was 10, hematocrit 31 with normal white cell count and platelets. Her serum protein electrophoresis still pending at the time of this dictation. Checked her intact PTH and was only 13. Her serum phosphorus was 2.9 mg/dL. PLAN: My plan is to treat her with pamidronate 30 mg in 500 mL normal saline. We will wait for the result of serum protein electrophoresis. The patient will be transferred to swing bed tomorrow for further rehabilitation and eventually will consult the oncologist to see whether she is a candidate to confirm the diagnosis of multiple myeloma to see whether she is a candidate for any form of therapy. TIFFANY PINEDA MD DR: YANETH/kobi JOB#: [id number] / [id number]
[2018-10-23 15:00] VITALS: BP 139/77
--- NOTE | 2018-10-23 15:12 | DS ---
DATE OF DISCHARGE: 10/23/2018 HOSPITAL COURSE: The patient was admitted with altered mental status and was found also to be in atrial fibrillation with rapid ventricular response. Her lab work showed that she has also hypercalcemia and CT scan of the head showed evidence of moth-eaten bones consistent with multiple myeloma. I did order serum protein electrophoresis. The result is still pending at the time of this dictation. Because she continued to have hypercalcemia and she has congestive heart failure, I treated her with a small dose of pamidronate instead of Lasix and normal saline. As her heart rate remained well controlled and she is not a candidate for anticoagulation given history of falls and therefore we will continue with Cardizem and aspirin only and will be transferred to swing bed to continue the process of rehabilitation. PHYSICAL EXAMINATION: GENERAL: When I saw her today, she looked well and was clearly in no apparent respiratory distress, slightly pale, but no jaundice, cyanosis, or thyromegaly. No jugular venous distension. No lower limb edema. VITAL SIGNS: Her heart rate was 99, blood pressure 126/70, temperature was 97.5, respiratory rate was 18 and oxygen saturation was 99% on room air. HEAD, EYES, EARS, NOSE AND THROAT: Showed normocephalic, atraumatic. NECK: Supple. HEART: Showed normal first and second heart sounds with no gallop, rub or murmur. CHEST: Clear to auscultation. No crepitation or rhonchi. ABDOMEN: Distended, soft, nontender. NEUROLOGIC: She is definitely more awake, alert, responding appropriately. Her cranial nerves intact. She is mostly bedbound, chair bound. Her intake over the last 24 hours was 600, output 750. LABORATORY DATA: As of this morning, her serum sodium was 138, potassium 3.9, chloride 103, bicarbonate 27, anion gap of 8, BUN 14, creatinine 0.9, estimated GFR was 61 mL per minute. Her glucose was 133, calcium was 10.4. Total bilirubin, AST, ALT, alkaline phosphatase were normal. Total protein was 7.2, albumin 2.6. Her prothrombin time was 11.8, INR of 1.2. Her nasal screen for MRSA by PCR was negative. Her white cell count was 5000, hemoglobin 10, hematocrit 30, MCV 87, and platelet count of 153,000. DISCHARGE MEDICATIONS: She was transferred to swing bed to continue multivitamin 1 tablet once a day, hydrochlorothiazide 12.5 mg once a day, ascorbic acid 500 mg once a day, lisinopril 20 mg once a day, Lantus insulin 30 units at bedtime, metformin 500 mg p.o. b.i.d., pamidronate 30 mg in 250 mL of normal saline given orally once. She is on Humalog insulin as insulin sliding scale before meals, Tylenol 650 mg once a day, aspirin 162 mg once a day and diltiazem 120 mg once a day. I did discontinue her hydrochlorothiazide as she is now on Cardizem and lisinopril. Once we have the serum protein electrophoresis, we will arrange for her to be seen by an oncologist for further evaluation and treatment of her possible multiple myeloma. FINAL DISCHARGE DIAGNOSES: 1. New onset atrial fibrillation, rate controlled. The patient is not a candidate for anticoagulation given her recurrent falls. 2. Hypercalcemia with abnormal findings. CT scan of the skull consistent with multiple myeloma. We sent blood for serum protein electrophoresis, the results of which are still pending. 3. Lactic acidosis, most likely type B due to metformin. 4. Other medical problems including: A. Hypertension. B. Hyperlipidemia. C. Gout. D. Type 2 diabetes. TIFFANY PINEDA MD DR: YANETH/kobi JOB#: [id number] / [id number]
[2018-10-23] MEDS ORDERED: metFORMIN 500 MG TABLET PO SCH (17:00)
[2018-10-23] MEDS ORDERED: ACET500T68 PO (19:34)
[2018-10-23] MEDS ORDERED: DILT120C80 PO (19:35)
[2018-10-23] MEDS ORDERED: INSULIN GLARGINE 300 UNITS/3 ML INSULN.PEN. SQ SCH (21:00)
[2018-10-23] MEDS ORDERED: ASPI325T8 PO (21:49)
[2018-10-24] MEDS ORDERED: MULTIVITAMIN with MINERAL TABLET. PO SCH (09:00)
[2018-10-24] MEDS ORDERED: hydroCHLOROthiazide 12.5 MG CAPSULE PO SCH (09:00)
[2018-10-24] MEDS ORDERED: ASCORBIC ACID 500 MG TABLET PO SCH (09:00)
[2018-10-24] MEDS ORDERED: LISINOPRIL 20 MG TABLET PO SCH (09:00)
[2018-10-24] MEDS ORDERED: MULTIVITAMIN I-VITE TABLET. PO SCH (09:00)
[2018-10-25 09:10] LABS: ALBUM 3.1 g/dL (2.9-4.4); ALPHA 1 0.2 g/dL (0.0-0.4); ALPHA 2 0.6 g/dL (0.4-1.0); BETA 1.2 g/dL (0.7-1.3); PROTEIN TOTAL 7.1 g/dL (6.0-8.5); SPEP AG RATIO 0.8 (0.7-1.7)
== END 2018-10-23 18:03 | disposition swing bed (61) | DRG 308 ==
LOC: ER 20:22 → ICU 22:00 → 1 SOUTH 10-22 15:40
PROVIDERS: ADMIT Internal Medicine; ATTEND Internal Medicine
DX: I48.91 Unspecified atrial fibrillation (principal); G93.41 Metabolic encephalopathy; E46 Unspecified protein-calorie malnutrition; E87.2 Acidosis; C90.00 Multiple myeloma not having achieved remission; Z68.41 Body mass index [BMI] 40.0-44.9, adult; E11.65 Type 2 diabetes mellitus with hyperglycemia; E78.5 Hyperlipidemia, unspecified; E83.52 Hypercalcemia; E86.0 Dehydration; I11.0 Hypertensive heart disease with heart failure; I50.9 Heart failure, unspecified; M10.9 Gout, unspecified; R29.6 Repeated falls; E83.42 Hypomagnesemia; Z82.3 Family history of stroke; Z83.3 Family history of diabetes mellitus; Z87.440 Personal history of urinary (tract) infections; Z90.49 Acquired absence of other specified parts of digestive tract; Z90.710 Acquired absence of both cervix and uterus; Z98.41 Cataract extraction status, right eye; Z98.42 Cataract extraction status, left eye; Z90.89 Acquired absence of other organs; Z90.722 Acquired absence of ovaries, bilateral; Z79.4 Long term (current) use of insulin; Z79.899 Other long term (current) drug therapy; Z80.9 Family history of malignant neoplasm, unspecified
CPT/HCPCS: 36415; 70450; 71045; 74176; 80048; 80053; 80061; 81001; 82947; 83605; 83735; 83880; 83970; 84100; 84165; 84443; 84484; 85025; 85027; 85610; 87641; 93005; 93306; 96365; 96366; 96368; 96375; 96376; J1815; J2430; J3475; J3490; J7050; P9612; 97110; 97116; 99291-25; J7030

== ENCOUNTER 2018-10-23 18:08 | Inpatient (IN) | payer MEDICARE ==
[~2018-10-23] VITALS: Ht 157.5 cm; Wt 104.4 kg
[~2018-10-23 18:08] MED LIST changes: +ASCO500T PO; +HYDR12.58 PO; +INSU100I13 SUBCUT; +LISI-334 PO; +METF500T16 PO; +MULT1TAB52 PO; +VIT1CAPS12 PO
[2018-10-23] MEDS ORDERED: ACET500T68 PO (19:34)
[2018-10-23] MEDS ORDERED: DILT120C80 PO (19:35)
[2018-10-23] MEDS ORDERED: ASPIRIN 81 MG TAB.CHEW PO PRN (19:45)
[2018-10-23] MEDS ORDERED: ACETAMINOPHEN 325 MG TABLET PO PRN (19:45)
[2018-10-23 20:41] VITALS: BP 128/72
[2018-10-23] MEDS ORDERED: ASPI325T8 PO (21:49)
[2018-10-23] MEDS ORDERED: DEXTROSE 50% 25 GM / 50ML DISP.SYRIN. IV PRN (22:00)
[2018-10-24 06:22] VITALS: BP 123/59
[2018-10-24] MEDS ORDERED: INSULIN LISPRO 300 UNITS/3 ML INSULN.PEN. SQ SCH (08:00)
[2018-10-24 08:35] VITALS: BP 123/59
[2018-10-24 10:28] LABS: HEMATOCRIT 33.2 % (36.0-47.0); HEMOGLOBIN 10.5 g/dL (12.0-15.5); RED BLOOD COUNT 3.83 x10^6/uL (3.50-5.40); RED CELL DISTRIBUTION WIDTH 17.5 % (11.5-14.5); WHITE BLOOD COUNT 4.5 x10^3/uL (4.0-11.0)
--- NOTE | 2018-10-24 10:29 | EKG ---
[address] [address] Test Date: 2018-10-24 Test Time: 10:27:47 Pat Name: SAV MORAN Department: Room: 130 A Gender: F Back Tacker: : [id number] Requested By: TIFFANY PINEDA Order Number: [id number] Reading MD: Measurements Intervals [place] Rate: 124 P: MT: QRS: 60 QRSD: 78 T: -28 QT: 246 QTc: 357 Interpretive Statements IRREGULAR RHYTHM, NO P-WAVE FOUND VENTRICULAR PREMATURE COMPLEX(ES) LOW LIMB LEAD VOLTAGE ABNORMAL ECG RI6.01 Compared to ECG 10/20/2018 20:36:48 Atrial fibrillation no longer present
[2018-10-24 12:32] LABS: ALBUMIN 2.8 g/dL (3.4-5.0); ALBUMIN/GLOBULIN RATIO 0.6 (1.0-1.7); CALCIUM 10.3 mg/dL (8.5-10.1); CREATININE 0.9 mg/dL (0.6-1.0); GFR 61.2; POTASSIUM 3.8 mmol/L (3.5-5.1); TOTAL BILIRUBIN 0.6 mg/dL (0.2-1.0); TOTAL PROTEIN 7.8 g/dL (6.4-8.2)
--- NOTE | 2018-10-24 14:21 | DS ---
DATE OF DISCHARGE: 10/24/2018 HOSPITAL COURSE: The patient was admitted yesterday to swing bed after being admitted to ICU then [facility] with atrial fibrillation with rapid ventricular response. She was also found to have hypercalcemia and finding on a CT scan consistent with multiple myeloma. We treated with pamidronate yesterday and unfortunately today, she starts complaining of shortness of breath and her heart rate was found to be high at 140-160, irregularly irregular. She was also complaining of shortness of breath. An echocardiogram was done, which showed that systolic function is mildly impaired. The ejection fraction is 40-45%, difficult to estimate due to AFib. Doppler imaging reveals moderate left ventricular diastolic dysfunction. She has mild global hypokinesis, septal motion suggestive of conduction defect. She has mild tricuspid regurgitation with an estimated pulmonary artery pressure of 47 mmHg. Given that she has recurrent atrial fibrillation with rapid ventricular response, a decision was made to transfer her back to ICU to consult the cardiology as treatment with Cardizem alone seems not effective. PHYSICAL EXAMINATION: GENERAL: When I saw her this afternoon, she looked pale, but no jaundice, cyanosis, or thyromegaly. No jugular venous distention. No lower limb edema. VITAL SIGNS: Her heart rate was 143, blood pressure was 123/59, temperature was 97.8, respiratory rate 20, and oxygen saturation was 98% on room air. HEAD, EYES, EARS, NOSE, AND THROAT: Showed normocephalic, atraumatic. NECK: Supple. HEART: Showed normal first and second heart sounds with no gallop, rub, or murmur. CHEST: Clear to auscultation. No crepitation or rhonchi. ABDOMEN: Distended, soft, nontender. NEUROLOGIC: She is awake, alert, responding appropriately. All cranial nerves intact. She moves extremities without difficulty. She ambulates with a walker, but was very short of breath when I saw her walking for short distance from the bathroom to her room. LABORATORY DATA: Her lab work this morning showed a white cell count of 4500, hemoglobin 10, hematocrit 33, MCV 87, and platelet count of 180,000. Her lab work is still pending at the time of this dictation. DISCHARGE MEDICATIONS: The patient was discharged to ICU to continue on Cardizem 120 mg once a day, Humalog insulin and insulin sliding scale before meals, aspirin 162 mg once a day, and acetaminophen 650 mg every 4 hours as needed. FINAL DISCHARGE DIAGNOSES: Atrial fibrillation with rapid ventricular response, acute on chronic systolic congestive heart failure, hypercalcemia, questionable type 2 diabetes, and protein calorie malnutrition. She also has features suggestive of multiple myeloma; however, we are waiting for serum protein electrophoresis. TIFFANY PINEDA MD DR: YANETH/kobi JOB#: [id number] / [id number]
== END 2018-10-24 12:32 | disposition short-term general hospital (02) | DRG 308 ==
LOC: LND 18:08
PROVIDERS: ADMIT Internal Medicine; ATTEND Internal Medicine
DX: I48.91 Unspecified atrial fibrillation (principal); I50.23 Acute on chronic systolic (congestive) heart failure; C90.00 Multiple myeloma not having achieved remission; E46 Unspecified protein-calorie malnutrition; Z68.41 Body mass index [BMI] 40.0-44.9, adult; E83.52 Hypercalcemia; I07.1 Rheumatic tricuspid insufficiency; E11.9 Type 2 diabetes mellitus without complications
CPT/HCPCS: 36415; 80053; 82947; 84443; 85027; 93005; J1815; 97535

== ENCOUNTER 2018-10-24 12:40 | Inpatient (IN) | payer MEDICARE ==
[~2018-10-24] VITALS: Ht 157.5 cm; Wt 105.7 kg
[2018-10-24] VITALS (11 sets, daily range): BP systolic 127–167; BP diastolic 63–84
[~2018-10-24 12:40] MED LIST changes: +ACET500T68 PO; +ASPI325T8 PO; +DILT120C85 PO
[2018-10-24] MEDS: dilTIAZem HCL 30 MG TABLET PO SCH ×2 (15:08→22:06)
[2018-10-24] MEDS: INSULIN LISPRO 300 UNITS/3 ML INSULN.PEN. SQ SCH (17:30)
[2018-10-24] MEDS ORDERED: ACETAMINOPHEN 325 MG TABLET PO PRN (17:30)
[2018-10-25] VITALS (10 sets, daily range): BP systolic 114–144; BP diastolic 49–94
[2018-10-25 06:21] LABS: BASO % 1 % (0-3); EOS % 1 % (0-3); HEMATOCRIT 29.5 % (36.0-47.0); HEMOGLOBIN 9.5 g/dL (12.0-15.5); LYMPH # 0.5 x10^3/uL (1.0-4.8); LYMPH % 18 % (24-48); MEAN CORPUSCULAR HEMOGLOBIN 28 pg (25-35); MEAN CORPUSCULAR HGB CONC 32 g/dL (31-37); MEAN CORPUSCULAR VOLUME 87 fL (79-100); MONO # 0.2 x10^3/uL (0.0-1.1); MONO % 6 % (0-9); NEUT % 74 % (31-73); PLATELET COUNT 146 x10^3/uL (140-400); RED BLOOD COUNT 3.41 x10^6/uL (3.50-5.40); RED CELL DISTRIBUTION WIDTH 17.6 % (11.5-14.5); WHITE BLOOD COUNT 2.6 x10^3/uL (4.0-11.0)
[2018-10-25 06:29] LABS: CALCIUM 9.7 mg/dL (8.5-10.1); CREATININE 0.9 mg/dL (0.6-1.0); GFR 61.2
[2018-10-25] MEDS ORDERED: ASPIRIN 81 MG TAB.CHEW PO SCH (08:00)
--- NOTE | 2018-10-25 09:01 | PDOC ---
PROGRESS NOTES Assessment 1. atrial fibrillation with RVR - rate control improved with increased cardizem dose. May increase to 240mg daily if needed. [id number] =~5 indicating need for OAC. Frequent falls recently and poor compliance with meds so will go with ASA only at this time. Risks/benefits/alternatives discussed with patient and son during consult on 10/21/18. 2. elevated BNP - no overt heart failure and no pulmonary congestion on CXR 3. hypertension - decrease lisinopril to allow for increased rate control. Will stop HCTZ for now as she has poor oral intake. 4. progressive weakness - per PCP 5. diabetes - uncontrolled, per PCP 6. protein malnutrition - per PCP May need IVF if she continues to decline oral fluids. Subjective Ms Raegan, seen on 10/21/18 in consult, was transferred to [facility] where she developed RVR yesterday while up with PT. She was transferred back to ICU to address rate control. See full consult from 10/21/18. This am she denies dyspnea, palpitations. She complains of achiness all over and lack of appetite. Objective Vital Signs Date Time Temp Pulse Resp B/P (MAP) Pulse Ox O2 Delivery O2 Flow Rate FiO2 10/25/18 06:40 98 22 144/94 (111) 98 Room Air 10/25/18 04:10 98.6 Intake and Output 10/25/18 07:00 Intake Total 540 ml Output Total 100 ml Balance 440 ml Intake Oral 540 ml Output Urine Total 100 ml # Voids 3 # Bowel Movements 1 Abdomen: Normal bowel sounds, Soft Heart: Normal S1, Normal S2, Other (no gallops, clicks or rubs) Extremities: No cyanosis, Other (trace edema) General: Alert, Oriented X3, Cooperative HEENT: Atraumatic, EOMI Lungs: Clear to auscultation, Normal air movement Neuro: Normal speech Psych/Mental Status: Mental status NL, Mood NL Review of Relevant I have reviewed the following items tavo (where applicable) has been applied. Labs Laboratory Tests Test 10/24/18 17:24 10/24/18 22:27 10/25/18 06:00 Glucose (Fingerstick) 257 mg/dL (70-99) 216 mg/dL (70-99) White Blood Count 2.6 x10^3/uL (4.0-11.0) Red Blood Count 3.41 x10^6/uL (3.50-5.40) Hemoglobin 9.5 g/dL (12.0-15.5) Hematocrit 29.5 % (36.0-47.0) Mean Corpuscular Volume 87 fL (79-100) Mean Corpuscular Hemoglobin 28 pg (25-35) Mean Corpuscular Hemoglobin Concent 32 g/dL (31-37) Red Cell Distribution Width 17.6 % (11.5-14.5) Platelet Count 146 x10^3/uL (140-400) Neutrophils (%) (Auto) 74 % (31-73) Lymphocytes (%) (Auto) 18 % (24-48) Monocytes (%) (Auto) 6 % (0-9) Eosinophils (%) (Auto) 1 % (0-3) Basophils (%) (Auto) 1 % (0-3) Neutrophils # (Auto) 2.0 x10^3uL (1.8-7.7) Lymphocytes # (Auto) 0.5 x10^3/uL (1.0-4.8) Monocytes # (Auto) 0.2 x10^3/uL (0.0-1.1) Eosinophils # (Auto) 0.0 x10^3/uL (0.0-0.7) Basophils # (Auto) 0.0 x10^3/uL (0.0-0.2) Sodium Level 137 mmol/L (136-145) Potassium Level 4.0 mmol/L (3.5-5.1) Chloride Level 102 mmol/L (98-107) Carbon Dioxide Level 27 mmol/L (21-32) Anion Gap 8 (6-14) Blood Urea Nitrogen 14 mg/dL (7-20) Creatinine 0.9 mg/dL (0.6-1.0) Estimated GFR (Cockcroft-Gault) 61.2 Glucose Level 228 mg/dL (70-99) Calcium Level 9.7 mg/dL (8.5-10.1) Medications Current Medications Diltiazem HCl (Cardizem) 30 mg Q8HRS PO Last administered on 10/24/18at 22:06; Start 10/24/18 at 14:15; Stop 10/24/18 at 22:01; Status DC Insulin Human Lispro (HumaLOG) 0-5 UNITS TIDWMEALS SQ Last administered on 10/24at 17:30; Start 10/24/18 at 17:30 Aspirin (Children'S Aspirin) 162 mg DAILYWBKFT PO ; Start 10/25/18 at 08:00 Acetaminophen (Tylenol) 650 mg PRN Q6HRS PRN PO PAIN / TEMP Last administered on 10/25/18at 02:40; Start 10/24/18 at 17:30 Diltiazem HCl (Cardizem 24hr Cd) 180 mg DAILY PO ; Start 10/25/18 at 09:00 Active Scripts Active Reported Aspirin 325 Mg Tablet 162 Mg PO DAILY PRN Diltiazem 24HR Cd (Diltiazem Hcl) 120 Mg Cap.er.24h 1 Cap PO DAILY Acetaminophen 500 Mg Tablet 650 Mg PO Q6HRS PRN Vitals/I & O Vital Sign - Last 24 Hours 10/24/18 10/24/18 10/24/18 10/24/18 14:00 14:00 15:00 15:08 Temp 98.7 Pulse 102 128 108 Resp 24 17 B/P (MAP) 154/63 (93) 132/73 (92) 132/73 Pulse Ox 96 O2 Delivery Room Air Room Air Room Air 10/24/18 10/24/18 10/24/18 10/24/18 16:00 16:00 17:00 18:08 Pulse 102 102 100 Resp 25 B/P (MAP) 159/84 (109) 157/76 (103) 153/70 (97) Pulse Ox 93 94 O2 Delivery Room Air Room Air Room Air Room Air 10/24/18 10/24/18 10/24/18 10/24/18 18:43 19:35 20:00 20:35 Temp 99.4 Pulse 100 108 99 Resp 22 20 B/P (MAP) 135/76 (95) 167/80 (109) 159/69 (99) Pulse Ox 99 96 O2 Delivery Room Air Room Air Room Air Room Air 10/24/18 10/24/18 10/24/18 10/24/18 22:04 22:06 22:46 23:49 Pulse 114 111 90 100 Resp 28 25 21 B/P (MAP) 133/66 (88) 133/66 137/66 (89) 127/64 (85) Pulse Ox 96 97 98 O2 Delivery Room Air Room Air Room Air 10/25/18 10/25/18 10/25/18 10/25/18 00:10 00:11 01:10 01:52 Temp 98.6 Pulse 90 89 Resp 20 22 B/P (MAP) 144/80 (101) 114/59 (77) Pulse Ox 96 100 O2 Delivery Room Air Room Air Room Air 10/25/18 10/25/18 10/25/18 10/25/18 02:48 03:45 04:10 04:10 Temp 98.6 Pulse 99 104 102 Resp 25 23 23 B/P (MAP) 133/64 (87) 119/65 (83) 117/49 (71) Pulse Ox 97 95 98 O2 Delivery Room Air Room Air Room Air Room Air 10/25/18 10/25/18 05:24 06:40 Pulse 97 98 Resp 20 22 B/P (MAP) 134/74 (94) 144/94 (111) Pulse Ox 97 98 O2 Delivery Room Air Room Air Intake and Output 10/24/18 10/24/18 10/25/18 15:00 23:00 07:00 Intake Total 400 ml 140 ml Output Total 50 ml 50 ml Balance 350 ml 90 ml GENESIS ROSARIO APRN Oct 25, 2018 09:01
[2018-10-25] MEDS: HYDROcodone/APAP 5/325MG 1 TAB TABLET PO PRN ×2 (09:22→16:34)
[2018-10-25] MEDS: INSULIN LISPRO 300 UNITS/3 ML INSULN.PEN. SQ SCH ×3 (09:23→17:00)
[2018-10-25] MEDS ORDERED: IV 1/2 NORMAL SALINE 1,000 ML IV ONE (09:45)
[2018-10-25 10:29] LABS: BACTERIA,URINE MANY /HPF (0-FEW); BILIRUBIN,URINE NEG (NEG); CLARITY,URINE CLOUDY; COLOR,URINE AMBER; GLUCOSE,URINE NEG (NEG); NITRITE,URINE NEG (NEG); RBC,URINE 0 /HPF (0-2); SQUAMOUS EPITHELIAL CELL,UR OCC /LPF; UROBILINOGEN,URINE 1 mg/dL (0.2 mg/dL)
--- NOTE | 2018-10-25 21:08 | TS ---
DATE OF TRANSFER: 10/25/2018 HOSPITAL COURSE: The patient was originally admitted with atrial fibrillation with rapid ventricular response. She was also complaining of weakness and tiredness. Initial examination showed that she did have hypercalcemia and her CT scan showed that diffuse heterogeneity of the osseous structures could be secondary to multiple myeloma and we did actually a serum protein electrophoresis, which showed that she has a monoclonal gammopathy. I discussed the finding with her son and he would like to pursue this further and therefore the patient was transferred to [facility] to consult the oncologist as she will require a bone marrow biopsy to confirm the diagnosis. PHYSICAL EXAMINATION: GENERAL: When I saw her this afternoon, she was resting slightly propped up in bed, in no apparent respiratory distress. She was pale, no jaundice, cyanosis, or thyromegaly. No jugular venous distension. No lower limb edema. VITAL SIGNS: Her heart rate was 87, blood pressure 126/66, temperature was 98, respiratory rate was 18, and oxygen saturation was 98% on room air. HEAD, EYES, EARS, NOSE, AND THROAT: Showed normocephalic, atraumatic. NECK: Supple. HEART: Showed normal first and second heart sounds. No gallop, rub, or murmur. CHEST: Clear to auscultation. No crepitation or rhonchi. ABDOMEN: Distended, soft, nontender. No guarding or rigidity. No organomegaly. All hernial orifices intact. Bowel sounds normal. NEUROLOGIC: She was awake, alert, responding appropriately. All cranial nerves are intact. She moves extremities without difficulty, though she obviously walks with a walker. LABORATORY DATA: Her lab work to this morning showed white cell count of 2600, hemoglobin 9.5, hematocrit 29.5, MCV 87, and platelet count of 146,000. Her chemistry showed a serum sodium 137, potassium 4, chloride 102, bicarbonate 27, anion gap of 8, BUN 14, creatinine 0.9, estimated GFR was 61 mL per minute. Her glucose was 228. DISCHARGE MEDICATIONS: She will be discharged or transferred to [facility] to continue lisinopril 10 mg once a day, hydrocodone/APAP 5/325 one tablet every 6 hours, diltiazem 180 mg once a day, aspirin 162 mg once a day, Tylenol 650 mg every 6 hours, and Humalog insulin as per insulin sliding scale before meals. FINAL DISCHARGE DIAGNOSES: 1. Atrial fibrillation with rapid ventricular response. 2. Hypertension. 3. Type 2 diabetes, somewhat poorly controlled. 4. Hypercalcemia. 5. Monoclonal gammopathy with features suggestive multiple myeloma. TIFFANY PINEDA MD DR: YANETH/kobi JOB#: [id number] / [id number]
--- NOTE | 2018-10-26 01:47 | HP ---
ADMIT DATE: 10/24/2018 HISTORY OF PRESENT ILLNESS: The patient is a 73-year-old female patient who was originally admitted with atrial fibrillation with rapid ventricular response and was transferred to swing bed to continue the process of rehabilitation. Yesterday afternoon, her heart rate started to rise and she went into atrial fibrillation with rapid ventricular response with heart rate that goes up to 140-160 and therefore, a decision was made to admit her to the ICU and to consult the Cardiology team again. The patient was also complained of shortness of breath on exertion, and she was continued on her other medications. Her echocardiogram showed that her systolic function is mildly impaired with ejection fraction of 40-45% and I did continue her Cardizem as well as her insulin and other medication, and consulted the Cardiology team again. PAST MEDICAL HISTORY: Significant for type 2 diabetes mellitus, hypertension, hyperlipidemia, gout, and paroxysmal atrial fibrillation with rapid ventricular response. She was also found to have hypercalcemia and we did actually a serum protein electrophoresis, which showed that she has monoclonal gammopathy consistent with other findings that suggest that she has multiple myeloma. She has CT scan of her skull that showed that she has moth-eaten bone, however, we did not do any skeletal survey and we have not done any bone marrow biopsy. PAST SURGICAL HISTORY: Significant for bilateral cataract extraction, tonsillectomy, appendectomy, cholecystectomy, total abdominal hysterectomy, bilateral salpingo-oophorectomy and left shoulder surgery. ALLERGIES: She has no known drug allergies. MEDICATIONS: She is on lisinopril 10 mg once a day, diltiazem 120 mg once a day, aspirin 162 mg once a day, acetaminophen 650 mg every 6 hours, Humalog insulin as per insulin sliding scale before meals, together with hydrocodone/APAP 5/325 one tablet every 6 hours. FAMILY HISTORY: She has 3 brothers and 1 sister , and 6 brothers and 1 sister still alive. Her father at age of 82 and mother at age of 60s because of complication of diabetes and overweight. SOCIAL HISTORY: She is , has 1 son and 1 daughter. She never smoked, does not drink alcohol. She used to work with her in their store. REVIEW OF SYSTEMS: As per history of present illness. PHYSICAL EXAMINATION: GENERAL: When I examined her, she looked somewhat pale, but no jaundice, cyanosis, or thyromegaly. No jugular venous distension. No lower limb edema. VITAL SIGNS: Her heart rate was 98, blood pressure 144/94, temperature was 98.6, respiratory rate was 22 and oxygen saturation was 98%. HEAD, EYES, EARS, NOSE AND THROAT: Showed normocephalic, atraumatic. NECK: Supple. HEART: Showed normal first and second sounds. No gallop, rub or murmur. CHEST: Clear to auscultation. No crepitation or rhonchi. ABDOMEN: Distended, soft, nontender. NEUROLOGIC: She was awake, alert, responding appropriately. Cranial nerves intact. She moves extremities without difficulty. She ambulates with a walker. LABORATORY DATA: Her lab work this morning showed a white cell count of 2600, hemoglobin 9.5, hematocrit 29.5, MCV 87 and platelet count of 146,000. Serum sodium was 137, potassium 4, chloride 102, bicarbonate 27, anion gap of 8, BUN 14, creatinine 0.9, estimated GFR was 61 mL per minute. Her glucose was ____. Her urinalysis showed the urine was cloudy with a pH of 6.5, specific gravity of 1.030. There was large amount of protein. The urine was negative for glucose, small amount of ketones, negative for blood, nitrite and leukocyte. There is trace amount of leukocyte esterase. There are 0 rbc's, 11-20 wbc's, and many bacteria. SUMMARY: In summary, this is a 73-year-old female patient who yet again was readmitted to the ICU with atrial fibrillation with rapid ventricular response. She has multiple medical problems including hyperglycemia and we did actually a serum protein electrophoresis, which showed she has monoclonal gammopathy consistent with diagnosis of multiple myeloma. Other medical problems include hypertension and type 2 diabetes. We did actually treat hypercalcemia with pamidronate and in fact she was much better yesterday when she was in swing bed, walking with a walker. PLAN: Continue with aspirin now for anticoagulation, as she has a high fall risk. Her Cardizem was increased to 180 mg. TIFFANY PINEDA MD DR: YANETH/kobi JOB#: [id number] / [id number]
[2018-10-26] MEDS ORDERED: LISINOPRIL 10 MG TABLET PO SCH (09:00)
== END 2018-10-25 17:56 | disposition short-term general hospital (02) | DRG 309 ==
LOC: ICU 13:26
PROVIDERS: ADMIT Internal Medicine; ATTEND Internal Medicine
DX: I48.0 Paroxysmal atrial fibrillation (principal); E46 Unspecified protein-calorie malnutrition; Z68.41 Body mass index [BMI] 40.0-44.9, adult; E11.65 Type 2 diabetes mellitus with hyperglycemia; E78.5 Hyperlipidemia, unspecified; I10 Essential (primary) hypertension; M10.9 Gout, unspecified; R29.6 Repeated falls; E83.52 Hypercalcemia; D47.2 Monoclonal gammopathy; Z83.3 Family history of diabetes mellitus; Z79.899 Other long term (current) drug therapy; Z98.41 Cataract extraction status, right eye; Z91.81 History of falling; Z90.710 Acquired absence of both cervix and uterus; Z98.42 Cataract extraction status, left eye; Z90.722 Acquired absence of ovaries, bilateral; Z90.49 Acquired absence of other specified parts of digestive tract
CPT/HCPCS: 36415; 80048; 81001; 82947; 85025; 87086; J7030